=== PATIENT | male | born 1960 | race African-American/Black ===

== ENCOUNTER 2024-03-24 19:48 | Emergency (ER) | payer MEDICAID, SELFPAY ==
[2024-03-24 20:04] VITALS: BP 153/66; PULSE 75; RESP 18; TEMP 36.1; O2SAT 100; BMI 24.7
--- NOTE | 2024-03-24 21:35 | CT_ITS ---
Patient: TALI CARR Facility:?[facility] RIS Patient ID:?[id number] Site Patient ID:?[id number]. Site :?[id number] Study:?CT-Abdomen/Pelvis W/85CC [id number]/23/2024 11:14:39 PM Ordering Physician:EUSEBIO Final Report: INDICATION: Abdomen, pelvic pain, history of intestinal cancer TECHNIQUE: CT Abdomen and pelvis with i.v. contrast. Coronal and sagittal reformats were obtained. CONTRAST: 85 mL Isovue 370 COMPARISON: None FINDINGS: Lower chest: Unremarkable. Liver: Unremarkable. Spleen: Unremarkable. Pancreas: Unremarkable. Gallbladder: Previous cholecystectomy noted with no significant intra- or extrahepatic biliary ductal dilatation seen. Kidney: Unremarkable. No kidney or ureteral stones or obstruction seen. Adrenal: Unremarkable. Bowel: A small bowel anastomotic staple line is present in the right lower quadrant. The appendix is not identified. Vascular: Unremarkable. Lymph: Unremarkable. Peritoneum: Unremarkable. No pneumoperitoneum is seen. No significant ascites is noted. Pelvis: Moderate enlargement of the prostate gland is noted with nodular protrusion impressing upon the base of the bladder. Mild bladder wall thickening is noted anteriorly which may be due to chronic bladder outlet obstruction. Soft tissue: Unremarkable. Bone: Unremarkable for age. IMPRESSION: 1. Moderate enlargement of the prostate gland is noted with nodular protrusion impressing upon the base of the bladder. Correlation with physical examination, PSA level, and/or MRI are recommended. Dictated by Rolando Khan MD @ 03/24/2024 11:25:32 PM Please note that all CT scans at this facility use dose modulation, iterative reconstruction, and/or weight-based dosing when appropriate to reduce radiation dose to as low as reasonably achievable. Dictated by: Rolando Khan MD @ 03/24/2024 23:31:08 Signed by:?Rolando Khan MD @03/24/2024 11:31:08 PM (Electronic Signature)
--- NOTE | 2024-03-24 21:38 | ED.GENADULT ---
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 He was having abdominal symptoms in November and underwent a cholecystectomy at [facility]. I do not have these records. He reports that he continued to have symptoms and was then evaluated again had ultimately had a intestinal resection and what sounds like a reanastomosis at [place] in May of 2023. Family does not recall what type of cancer specifically. They think he was hospitalized for 1-2 weeks but he did not require subsequent surgeries and was not taken back into the OR given drains or a wound VAC. Per their description, everything went well. They state that he has done well since the surgery with the exception of the past 2 weeks. For the last 2 weeks he has had epigastric and diffuse abdominal pain that worsens with leaning forward. It is a burning sensation and is accompanied by anorexia but no vomiting. There was no bloody stools, bowel movements have been normal. He reports some decreased urination and some abdominal pain when he tries to urinate but is not very descriptive on this. There is admittedly a language barrier and the patient insists that his daughter translates it is clear that she is not giving me every detail that he says. No fever. No bloody stools. It does not sound like there is true weight loss. They have not attempted to see his primary care provider within the last few weeks of symptoms. They have not tried any antacid medications. Patient states that she called his surgical team today and is awaiting a call back. They have never been seen in our health system but thought that the wait was too long at the ED and [facility]. Of note our emergency department is quite busy today as well. Denies injury or trauma. Past medical history benign per their report, no major long-term health problems. His only prior surgeries are the cholecystectomy and then a subsequent bowel resection with reanastomosis of some kind of which I do not have clear details. No long-term medications, no allergies, nonsmoker nondrinker, no pertinent travel. ROS is notable for the GI and generalized symptoms as described above, otherwise the family denies times 12 systems. Related Data Previous Rx's Medication Instructions Recorded omeprazole 20 mg capsule,delayed 20 mg PO DAILY #60 caps 03/24/24 release Allergies Allergy/AdvReac Type Severity Reaction Status Date / Time other Allergy Mild Uncoded 03/24/24 20:10 [facility] Social History Smoking Status: Never smoker How often do you have a drink containing alcohol: never AUDIT-C Alcohol total score: 0 Non-prescribed substance use: denies use Exam Const: Vital Signs, click to edit/add: Vital Signs - 24 hr 03/24/24 20:04 Temperature 97.0 F L Pulse Rate [Pulse Oximeter] 75 Respiratory Rate 18 Blood Pressure [Le ft Upper Arm] 153/66 H Pulse Oximetry 100 Oxygen Delivery Me thod Room Air Documenting provider has reviewed patient's vital signs: yes Common normals: no apparent distress and alert General appearance: comfortable and well kempt HENMT: Common normals: normocephalic, moist oral mucous membranes and oropharynx normal Head and scalp: normocephalic Face and sinus: normal facial exam Mouth: oral and palatal mucosa normal Eye: Common normals: conjunctivae normal General eye: normal appearance of both eyes Conjunctiva: conjunctiva(e) normal Neck & C-Spine: Common normals: full ROM and no lymphadenopathy Resp: Common normals: normal respiratory effort, no use of accessory muscles and clear to auscultation bilaterally Effort & inspection: able to speak in complete sentences Auscultation: clear to auscultation bilaterally Cardio: Common normals: regular rate, regular rhythm, S1 normal heart sound, S2 normal heart sound and no murmurs Rate: regular rate Rhythm: regular rhythm Heart sounds: S1 normal and S2 normal GI: Common normals: Normal to inspection, nondistended, normoactive bowel sounds present, soft to palpation, no hepatosplenomegaly and no masses Palpation: soft and no hepatosplenomegaly Other: Surgical scarring consistent with a midline laparotomy, well-healed. Mostly tender to the epigastrium, less so in the lower abdomen certainly no rebound tenderness or guarding. No palpable mass. Extremity: Common normals: normal capillary refill and no pedal edema General: normal exam except as noted Neuro: Sensorium/orientation: alert Speech: speech normal Motor exam: no movement abnormalities noted Psych: Appearance: well kempt Attitude: engaged Mood and affect: euthymic mood Insight: insight good Judgement: judgment good Skin: Common normals: no rashes or lesions noted General skin exam: no rashes or lesions noted Course Course ED Course: Anorexia with epigastric pain x2 weeks with concerning prior cancer history and limited follow-up postoperatively. Differential diagnosis including gastroenteritis, GERD, obstruction, recurrence of cancer, ischemic bowel, pancreatitis, colitis, autoimmune disease, among others. I am most suspicious that this is GERD related but with his history and limited ability to obtain a clear story, I recommend a thorough workup. Will start by giving Protonix, Zofran, Toradol and IV fluid. CT of the abdomen and pelvis, typical GI labs and urinalysis. Await findings and clinical response. Reevaluation(s) Time of Reevaluation #1: 23:55 Reevaluation #1: Patient is feeling better after the antacids given. All results were relayed to them. Labs are overall very reassuring. CT mostly reassuring that does show some prostate enlargement which may explain the urinary symptoms he is describing but certainly would not explain the burning stomach irritation and postprandial symptoms. I recommended that he start once daily omeprazole. Primary care follow-up in 2 weeks to investigate the enlarged prostate seen on CT and also to check in on the GERD. If not improving, would recommend H pylori testing, possibly endoscopy. Prescription for omeprazole sent to pharmacy. Alarm symptoms reviewed that would warrant ED presentation. Written instructions provided. Vital Signs Vital signs: Initial Vital Signs Temperature 97.0 F L 03/24/24 20:04 Temperature Source Temporal Artery Scan 03/24/24 20:04 Pulse Rate 75 03/24/24 20:04 Respiratory Rate 18 03/24/24 20:04 Blood Pressure 153/66 H 03/24/24 20:04 Blood Pressure Mean 95 03/24/24 20:04 Blood Pressure Position Sitting 03/24/24 20:04 Pulse Oximetry 100 03/24/24 20:04 Oxygen Delivery Method Room Air 03/24/24 20:04 Vital Signs Temperature 97.0 F L 03/24/24 20:04 Pulse Rate 75 03/24/24 20:04 Respiratory Rate 18 03/24/24 20:04 Blood Pressure 153/66 H 03/24/24 20:04 Pulse Oximetry 100 03/24/24 20:04 Oxygen Delivery Method Room Air 03/24/24 20:04 Temperature 97.0 F L 03/24/24 20:04 Pulse Rate 75 03/24/24 20:04 Respiratory Rate 18 03/24/24 20:04 Blood Pressure 153/66 H 03/24/24 20:04 Pulse Oximetry 100 03/24/24 20:04 Oxygen Delivery Method Room Air 03/24/24 20:04 Medications Administered Medications: Discontinued Medications Generic Name Dose Route Start Last Admin Trade Name Freq PRN Reason Stop Dose Admin Sodium Chloride 1,000 mls @ 1,000 mls/hr 03/24/24 21:37 03/24/24 22:45 0.9 % Sodium Chloride 1000 Ml IV 03/24/24 22:36 Infused .Q1H LEONA Infusion Ketorolac Tromethamine 15 mg 03/24/24 21:35 03/24/24 22:08 Ketorolac 15 Mg/Ml Inj IVP 03/24/24 21:36 15 mg ONCE ONE Administration Ondansetron HCl 4 mg 03/24/24 21:35 03/24/24 22:08 Ondansetron 2 Mg/Ml Inj IVP 03/24/24 21:36 4 mg ONCE ONE Administration Pantoprazole Sodium 40 mg 03/24/24 21:35 03/24/24 22:08 Pantoprazole Sodium 40 Mg Inj IVP 03/24/24 21:36 40 mg ONCE ONE Administration Medical Decision Making Lab Data Lab results reviewed: Yes I reviewed the patient's lab results Lab results narrative: Very reassuring. Labs: Lab Results 03/24/24 03/24/24 Range/Units 21:45 21:55 WBC 6.77 (4.50-11.00) K/uL RBC 4.99 (4.30-5.90) m/uL Hgb 14.8 (13.5-17.5) gm/dL Hct 44.4 (37.0-53.0) % MCV 89 (80-100) fL MCH 30 (26-34) pg MCHC 33 (32-36) gm/dL RDW Coeff of Dalila 13.0 (11.5-15.5) % Plt Count 140 (140-440) K/uL Neut % (Auto) 44.4 (42.0-72.0) % Lymph % (Auto) 41.7 (20-44) % Lynn % (Auto) 12.3 H (0.0-11.0) % Eos % (Auto) 1.3 (0.0-7.0) % Baso % (Auto) 0.3 (0.0-3.0) % Neut # (Auto) 3.01 (1.7-7.0) K/uL Lymph # (Auto) 2.82 (0.90-2.90) K/uL Lynn # (Auto) 0.80 (0.00-0.90) K/UL Eos # (Auto) 0.09 (0.00-0.50) K/uL Baso # (Auto) 0.02 (0.00-0.30) K/uL Abs Immat Gran (auto) 0.00 (0.00-0.30) K/uL Imm/Tot Granulo (auto) 0.0 % Sodium 138 (135-149) mmol/L Potassium 3.8 (3.6-5.1) mmol/L Chloride 105 (96-114) mmol/L Carbon Dioxide 29 (20-32) mmol/L Anion Gap 4 L (7-15) mEq/L BUN 11 (7-30) mg/dL Creatinine 0.8 (0.5-1.5) mg/dL Estimated Creat Clear 79.48 Estimated GFR 99 ml/min Glucose 87 (60-115) mg/dL Lactate 0.9 (0.5-1.9) mmol/L Calcium 9.1 (8.4-10.6) mg/dL Total Bilirubin 0.5 (0.1-1.5) mg/dL AST 21 (12-35) U/L ALT 16 (4-50) U/L Alkaline Phosphatase 68 (40-150) U/L C-Reactive Protein < 0.5 L (0.5-1.0) mg/dL Total Protein 7.2 (6.0-8.3) g/dL Albumin 4.2 (3.3-5.0) g/dL Lipase 58 (23-300) U/L Urine Color Yellow (Yellow) Urine Appearance Clear (Clear) Urine pH 7.0 (5.0-8.5) Ur Specific [place] 1.015 (1.000-1.030) Urine Protein Negative (Negative) Urine Glucose (UA) Negative (Negative) Urine Ketones Negative (Negative) Urine Blood Trace-intact A (Negative) Urine Nitrite Negative (Negative) Urine Bilirubin Negative (Negative) Urine Urobilinogen 0.2 (0.2-1.0) Ur Leukocyte Esterase Negative (Negative) Urine RBC 0-2 (0-2) Urine WBC 0-2 (0-5) Ur Squamous Epith Cells Few (None-Few) Urine Bacteria None (None) Imaging Data CT scan - abdomen: Attestation: I have reviewed the pertinent imaging results. My impression: Other than an enlarged prostate, postsurgical changes, I do not recognize any major abnormality. Very reassuring. Radiologist's impression: IMPRESSION: 1. Moderate enlargement of the prostate gland is noted with nodular protrusion impressing upon the base of the bladder. Correlation with physical examination, PSA level, and/or MRI are recommended. Discharge Plan Discharge Clinical Impression: Enlarged prostate, Gastroesophageal reflux disease Patient Disposition: Home w/ Parent or Adult Condition: Stable Instructions: Enlarged Prostate (BPH) (ED), GERD (Gastroesophageal Reflux Disease) (DC) Additional Instructions: I am glad that you found the medicine helpful. I think that most of your stomach symptoms are caused by gastroesophageal reflux disease, or stomach acid. I do not think that there is an allergy. I would like to start you on a stomach acid medicine called omeprazole. He will take this once daily, 30 minutes before a meal. Most people start to feel a lot better within a couple of days. I would like for you to make a follow-up appoint with her primary care doctor for about 2 weeks from now. If your stomach symptoms have not improved by then, he should do additional testing for H pylori and consider doing an endoscopy. He may have other great ideas as he knows you better also. I have sent this prescription to your pharmacy. It is safe for you to continue eating. The CT scan showed that you have an enlarged prostate. I am not sure if your primary doctor knows about this or has investigated this in the past. I will need him to do blood testing that I cannot do here in the emergency department to look into this further. I do not think that this is causing your stomach symptoms but it may be related to the mild urinary changes that you are noting also. There were no other significant abnormalities noted on the CT scan which is great news. Please bring this paperwork with you in case he has not received my notes. Activity Level: No Restrictions Discharge Diet: Regular Prescriptions: New omeprazole 20 mg capsule,delayed release(DR/EC) 20 mg PO DAILY Qty: 60 1RF Follow Up/Referrals: Gabriel Cuellar MD [Primary Care Provider] - Stand Alone Forms: [employer] Info Instructions
[2024-03-24 21:55] LABS: Lactate* 0.9 mmol/L (0.5-1.9)
[2024-03-24 21:57] LABS: Basophils Absolute Auto 0.02 K/uL (0.00-0.30); Basophils Percent Auto 0.3 % (0.0-3.0); Eosinophils Absolute Auto 0.09 K/uL (0.00-0.50); Eosinophils Percent Auto 1.3 % (0.0-7.0); Hematocrit 44.4 % (37.0-53.0); Hemoglobin* 14.8 gm/dL (13.5-17.5); Lymphocytes Absolute Auto 2.82 K/uL (0.90-2.90); Lymphocytes Percent Auto 41.7 % (20-44); Mean Corpuscular HGB Conc 33 gm/dL (32-36); Mean Corpuscular Hemoglobin 30 pg (26-34); Mean Corpuscular Volume 89 fL (80-100); Monocytes Percent Auto 12.3 % (0.0-11.0); Neutrophils Absolute Auto 3.01 K/uL (1.7-7.0); Neutrophils Percent Auto 44.4 % (42.0-72.0); Platelet Count* 140 K/uL (140-440); Red Blood Count 4.99 m/uL (4.30-5.90); White Blood Count* 6.77 K/uL (4.50-11.00)
[2024-03-24 22:00] LABS: Slide Review Reflex No
[2024-03-24] MEDS: PANTOPRAZOLE SODIUM 40 MG INJ IVP (22:08)
[2024-03-24] MEDS: 0.9 % SODIUM CHLORIDE 1000 ml 1,000 ML IV (22:08)
[2024-03-24] MEDS: KETOROLAC 15 MG/ML inj IVP (22:08)
[2024-03-24] MEDS: ONDANSETRON 2 MG/ML inj 4 MG IVP (22:08)
[2024-03-24 22:10] LABS: Appearance Urine Clear (Clear); Bilirubin Urine Negative (Negative); Blood Urine Trace-intact (Negative); Color Urine Yellow (Yellow); Glucose Urine Negative (Negative); Ketones Urine Negative (Negative); Leukocyte Esterase Urine Negative (Negative); Nitrite Urine Negative (Negative); Protein Urine Negative (Negative); Specific Gravity Urine 1.015 (1.000-1.030); Urobilinogen Urine 0.2 (0.2-1.0)
[2024-03-24 22:16] LABS: Albumin* 4.2 g/dL (3.3-5.0); Chloride* 105 mmol/L (96-114)
[2024-03-24 22:17] LABS: Potassium* 3.8 mmol/L (3.6-5.1); Sodium* 138 mmol/L (135-149)
[2024-03-24 22:19] LABS: Creatinine* 0.8 mg/dL (0.5-1.5); Est. Creatinine Clearance* 79.48; Estimated Glomerular Filt Rate 99 ml/min
[2024-03-24 22:20] LABS: Alanine Aminotransferase* 16 U/L (4-50); Alkaline Phosphatase* 68 U/L (40-150); Anion Gap 4 mEq/L (7-15); Aspartate Amino Transferase* 21 U/L (12-35); Bilirubin Total* 0.5 mg/dL (0.1-1.5); Blood Urea Nitrogen* 11 mg/dL (7-30); Calcium* 9.1 mg/dL (8.4-10.6); Carbon Dioxide* 29 mmol/L (20-32); Glucose* 87 mg/dL (60-115); Lipase* 58 U/L (23-300); Total Protein* 7.2 g/dL (6.0-8.3)
[2024-03-24 22:22] LABS: RBC Urine 0-2 (0-2); Squamous Epithelial Cell Urine Few (None-Few); WBC Urine 0-2 (0-5)
[2024-03-24 22:25] LABS: C Reactive Protein* < 0.5 mg/dL (0.5-1.0)
== END 2024-03-25 00:06 | disposition home or self-care (01) ==
PROVIDERS: Emergency Provider Family Medicine; PCP Family Medicine
DX: N40.0 Benign prostatic hyperplasia without lower urinary tract symptoms (principal); K21.9 Gastro-esophageal reflux disease without esophagitis
CPT/HCPCS: 36415; 74177; 80053; 81001; 81003; 83605; 83690; 85025; 86140; 96374; 96375; 99284; 99285; C9113; J1885; J2405; J7030; Q9967